=== PATIENT | male | born 1940 | race Caucasian/White ===

== ENCOUNTER 2023-06-17 19:15 | Emergency (ER) | payer OTHER, SELFPAY ==
[2023-06-17 19:20] VITALS: BP 126/66
--- NOTE | 2023-06-17 20:06 | ED.GENMED ---
History of Present Illness
General
Chief Complaint: Fall
Source: patient
Exam Limitations: none
Time Seen by Provider: 06/17/23 20:05
Nursing documentation reviewed up to this point in time: agreed with
Travel History
Have you had any contact with someone who has COVID-19?: No
Do you have any symptoms of coronavirus? Fever > 100 degrees, chills, cough, shortness of breath, sore throat, loss of taste or smell, muscle aches, or headache?: No
History of Present Illness
History of Present Illness:
82-year-old male undergoing physical therapy for chronic low back pain and sciatica. He states his sciatica is improved but he still has low back pain so he continues with physical therapy with a therapist as well as on his own. Was at the gym 2
days ago doing an exercise on a ball rocking back and forth on the ball, he slid off and hit the back of his head on the wall and his right elbow on the floor causing pain in the right shoulder. He has had pain in the right shoulder since. He is
on Eliquis. He denies headache. There was no loss of consciousness. He has been able to do daily activities since.
Past History
Past History
ED Past Medical History: Arrthythmia (Atrial fib) and Other (Urinary retention, prostate enlargement, facial melanoma)
ED Past Surgical History: Tonsilectomy, Urological (TURP) and Other ( groin hernia on the left)
Social History
Tobacco: Non-smoker
Alcohol: None
Drug: None
Personal:
Living: alone
Employment: Employed (Teacher )
Family History
Family History: Other (Noncontributory)
Review of Systems
Review of Systems
Allergies reviewed?: Yes
All Other Systems: ROS reviewed and negative except as documented in HPI and ROS
Constitutional: Denies fatigue
Respiratory: Denies trouble breathing
Cardiac: Denies chest pain or syncope
ABD/GI: Denies abdominal pain, nausea or vomiting
Musculoskeletal: Reports other (Chronic neck and back pain. No pain in right elbow. Pain in right shoulder.)
Skin: Reports no symptoms
Neurological: Denies dizzy, headache, weakness or numbness
Phy Exam
Physical Exam
Physical Exam:
GENERAL: No acute distress. A&Ox3.
CONSTITUTIONAL: Afebrile.
EYES: PERRL, conjunctivae normal
ENMT: moist mucus membranes, Pharynx nl
RESPIRATORY: Regular respirations, nonlabored, lungs clear.
CARDIOVASCULAR: Regular rate and rhythm, no murmurs, no rubs.
GI: Soft, nontender, normal BS
MUSCULOSKELETAL: No spinal bony tenderness. Limited but equal ROM of both upper extremities. Tender to palpate anterior aspect of the right humeral head. The rest of the arm is nontender. There is no tenderness about the elbow. Elbow has full
range of motion. Moves with ease. Well perfused.
SKIN: Warm, dry, pink
PSYCH: Normal mood and affect. Well kept, interactive and appropriate
NEUROLOGIC: Awake, alert and oriented. No focal neurological deficits, ambulates well with steady gait.
Course
Orders/Labs/Results
Orders:
Orders
06/17/23 19:25
CT Head W/o Iv Contrast Urgent
Comment:
Reason For Exam: FALL HIT HEAD ON ELIQUIS
CR Shoulder, Trauma - Right Urgent
Reason For Exam: FALL
Vital Signs
Initial and Last Documented VS:
Initial Vital Signs
Temp Pulse Resp BP Pulse Ox
98.1 F 72 20 126/66 98
06/17/23 19:20 06/17/23 19:20 06/17/23 19:20 06/17/23 19:20 06/17/23 19:20
Last Documented Vital Signs
Temp Pulse Resp BP Pulse Ox
98.1 F 82 20 94/52 98
06/17/23 19:20 06/17/23 21:09 06/17/23 19:20 06/17/23 21:09 06/17/23 19:20
MDM/Problems Addressed
MDM/Problems Addressed:
82-year-old male undergoing physical therapy for chronic low back pain and sciatica. He states his sciatica is improved but he still has low back pain so he continues with physical therapy with a therapist as well as on his own. Was at the gym 2
days ago doing an exercise on a ball rocking back and forth on the ball, he slid off and hit the back of his head on the wall and his right elbow on the floor causing pain in the right shoulder. He has had pain in the right shoulder since. He is
on Eliquis. He denies headache. There was no loss of consciousness. He has been able to do daily activities since.
Patient is pleasant, does not appear to have any problems moving around, gets a full stretcher and ambulates well
06/17/20232005 PM
Head CT: Radiology report read: No acute intracranial abnormality
X-ray right shoulder: Radiology report read: IMPRESSION: Moderate AC joint osteoarthritis.
Severe glenohumeral joint osteoarthritis. Progressed
*Critical Care Note
Total Time (30-74mins, 75-104mins- exclusive of procedures): Not Applicable
ED Attending Note
-
Portions of this chart may have been created with voice recognition software.� Occasional wrong word or��sound alike� substitutions may have occurred due to the inherent limitations of voice recognition software.
Discharge Plan
Departure
Patient Disposition: Home (Routine Discharge)
Date of Disposition: 06/17/23
Time of Disposition: 20:50
Patient with high blood pressure during this ER visit?: No
Condition: Good
Discharge Problem:
fall, Minor head injury, Acute pain of right shoulder, OA (osteoarthritis) of shoulder
Instructions: Osteoarthritis, Head Injury in Adults (DC), Shoulder Pain ED
Prescriptions:
No Action
cyanocobalamin (vitamin B-12) 1,000 MCG tablet
1,000 mcg PO DAILY
ascorbic acid (vitamin C) [Vitamin C] 500 MG tablet
3,000 mg PO DAILY
pyridoxine (vitamin B6) 50 MG tablet
50 mg PO DAILY
zinc 50 MG tablet
50 mg PO DAILY
magnesium 200 MG tablet
200 mg PO DAILY
coenzyme [id number] E 1 CAP capsule
1 cap PO .DAILY-BID
cholecalciferol (vitamin D3) 1,000 UNITS tablet
1,000 units PO .DAILY-BID
lutein 20 MG tablet
20 mg PO DAILY
creatine (bulk) 100 GM powder
2 cap PO DAILY
metoprolol succinate 25 MG tablet extended release 24 hr
25 mg PO PRN PRN (Reason: afib)
Patient Comments:
if takes consistently, gets very tired
Eliquis 2.5 mg Tablet
2.5 mg PO BID
Hold Instructions: Resume on 04/13/22. continue holding if blood in urine
amiodarone 200 mg Tablet
200 mg PO DAILY
Referrals:
Omar Leal MD [Active] - As needed
Activity Restrictions/Additional Instructions:
As we discussed, your head CT shows nothing worrisome.
Your right shoulder x-ray shows advanced arthritis. Tylenol 1000 mg up to 3 times a day as needed for pain.
If your shoulder continues to bother you, make an appointment with the orthopedic doctor for further evaluation.
Interventions
Interventions:
*Risk Screen - Suicide Last Done: 06/17/23 19:20
*General Assessment Last Done: 06/17/23 20:26
*Neglect/Abuse Screening Last Done: 06/17/23 19:20
*Nursing Disposition Last Done: 06/17/23 21:09
ED-Musculoskeletal Assessment Last Done: 06/17/23 19:59
ED- Neurological Assessment Last Done: 06/17/23 19:59
ED-Skin Assessment Last Done: 06/17/23 19:59
Discharge Date and Time
Discharge Date/Time: 06/17/23 21:10
[2023-06-17 21:03] VITALS: BP 94/52
[2023-06-17 21:09] VITALS: BP 94/52
== END 2023-06-17 21:10 | disposition home or self-care (01) ==
LOC: EMR 19:15
PROVIDERS: EMERGENCY PHYSICIAN Emergency Medicine; FAMILY PHYSICIAN Family Medicine
DX: S09.90XA Unspecified injury of head, initial encounter (principal); W19.XXXA Unspecified fall, initial encounter; M25.511 Pain in right shoulder; M19.011 Primary osteoarthritis, right shoulder; G89.29 Other chronic pain; Z79.01 Long term (current) use of anticoagulants
CPT/HCPCS: 99284; 70450; 73030

== ENCOUNTER 2023-08-07 13:04 | Inpatient (IN) | payer OTHER, SELFPAY ==
[2023-08-07 13:21] VITALS: BMI 27.0
[2023-08-07 13:27] VITALS: BP 144/74
[2023-08-07 14:34] LABS: % Immature Granulocytes 0.2 % (0-0.5); % Lymphocytes 23.8 % (20.5-51.1); % Monocytes 10.1 % (1.7-9.3); % Neutrophils 59.9 % (42.2-75.2); Absolute Basophils 0.1 10^3/uL (0-0.2); Absolute Eosinophils 0.2 10^3/uL (0-0.7); Absolute Lymphocytes 1.2 10^3/uL (1.2-3.4); Absolute Monocytes 0.5 10^3/uL (0.1-0.6); Absolute Neutrophils 2.9 10^3/uL (1.4-6.5); Hematocrit 34.8 % (39.0-52.0); Hemoglobin 11.5 g/dL (13.0-18.0); Mean Corpuscular Volume 87.7 fL (80.0-94.0); Mean Platelet Volume 11.3 fL (7.4-10.4); Nucleated Red Blood Cells % 0 % (-); Platelet Count 208 10^3/uL (130-400); Red Blood Cell Count 3.97 10^6/uL (4.70-6.10); Red Cell Dist. Width 14.6 % (11.5-14.5); White Blood Cell Count 4.8 10^3/uL (4.8-10.8)
[2023-08-07 14:57] VITALS: BMI 27.0
[2023-08-07 15:00] LABS: ALT (SGPT) 21 U/L (0-50); AST (SGOT) 30 U/L (17-59); Albumin 3.6 g/dl (3.5-5.0); Alkaline Phosphatase 81 U/L (38-126); Blood Urea Nitrogen 40 mg/dl (9-20); Calcium 9.2 mg/dl (8.4-10.2); Carbon Dioxide 26 mmol/L (22-30); Chloride 105 mmol/L (98-107); Estimated Creatinine Clearance 63 ml/min; Glucose 92 mg/dl (70-99); Potassium 4.6 mmol/L (3.5-5.1); Sodium 135 mmol/L (135-145); Total Bilirubin 0.5 mg/dl (0.2-1.3); Total Protein 6.3 g/dl (6.3-8.2); eGFR > 60.00
--- NOTE | 2023-08-07 15:03 | PTCARENOTE ---
Patient admitted this afternoon for tikosyn loading. Oriented to the room and plan of care. SB on the monitor, admission assessment completed. Patient eating lunch, call arellano in reach, daughter at the bedside.
--- NOTE | 2023-08-07 15:11 | CON.CAR ---
Addendum entered and electronically signed by Shabana Butt MD 08/07/23 20:45:
I saw and examined the patient.
The Television Engineer's note was reviewed and I agree with the note.
Comment: Patient with pAF and baseline bradycardia with amiodarone skin reaction presenting for planned Tikosyn load given symptomatic from pAF. On chronic eliquis.
Vitals reviewed. Labwork reviewed. Creat 1.0 from 1.6. ECG with normal QTc.
Exam with well appearing male in NAD, awake, alert, oriented x 3, No JVD, Lungs CTA, RR, normal S1 and S2. no m/r/g, abd soft, NT, ND, + BS, no LE edema
Reccs:
1. Plan to start at 250mcg every 12hrs of Tikosyn with close monitoring of ECGs and on tele.
2. Cont eliquis.
3. Not on any AVNB in setting of baseline sinus ange.
Shabana Butt MD
Original Note:
Consultation
Consultation Request
Date/Time Consultation Performed: 08/07/23
Performing Provider: Rhina Rendon PA-C for Dr. Butt
Reason for Consultation: afib, tikosyn load
Medical History
-
Chief Complaint: tikosyn load
History of Present Illness:
Patient is an 82-year-old male with past medical history of paroxysmal atrial fibrillation, symptomatic. He previously has been on amiodarone, however developed significant eczema type of rash and after discussion, amiodarone was stopped 06/26/2023.
Tikosyn was discussed, and he is now admitted for Tikosyn loading. He is in sinus bradycardia at present. He remains on Eliquis, with no missed doses as an outpatient. He has taken topical antifungal medicines, however nothing orally.
PMH:
Paroxysmal atrial fibrillation, symptomatic
Chronic anticoagulation with Eliquis
Sinus bradycardia
Rash with amiodarone
Spinal stenosis
Hyperlipidemia
History of TURP
Past Medical History
Past Medical History: Other (in HPI)
Social History
Tobacco: Non-Smoker
Employment: Employed
Allergies / Home Medications
Allergy/AdvReac Type Severity Reaction Status Date / Time
finasteride Allergy debilitating Verified 06/17/23 19:24
muscle pain
Penicillins Allergy 'little Verified 06/17/23 19:24
red
spots',
hives-
tolerated
ceftriaxone
Sulfa (Sulfonamide Allergy 'little Verified 06/17/23 19:24
Antibiotics) red spots'
�Medication �Instructions �Recorded �Confirmed �Type
ascorbic acid (vitamin C) 500 mg 3,000 mg PO DAILY Supplement 07/06/20 08/07/23 History
tablet (Vitamin C)
cholecalciferol (vitamin D3) 25 1,000 units PO DAILY Supplement 07/06/20 08/07/23 History
mcg (1,000 unit) tablet
coenzyme [id number] E 100 mg-100 1 cap PO DAILY Supplement 07/06/20 08/07/23 History
unit capsule
cyanocobalamin (vitamin B-12) 1,000 mcg PO DAILY Supplement 07/06/20 08/07/23 History
1,000 mcg tablet
lutein 20 mg tablet 20 mg PO DAILY Supplement 07/06/20 08/07/23 History
pyridoxine (vitamin B6) 50 mg 50 mg PO DAILY Supplement 07/06/20 08/07/23 History
tablet
zinc 50 mg tablet 50 mg PO DAILY Supplement 07/06/20 08/07/23 History
apixaban 5 mg tablet (Eliquis) 5 mg PO BID 08/07/23 08/07/23 History
glutamine 500 mg capsule 500 mg PO DAILY 08/07/23 08/07/23 History
(L-Glutamine)
magnesium 300 tab PO BID 08/07/23 08/07/23 History
Review of Systems
-
History Source: Patient and Family
All other systems: Negative unless noted
Physical Exam
Lab Results
08/07/23 14:19
08/07/23 14:19
Physical Exam
General: No Apparent Distress and Comfortable
HEENT: Normocephalic, Anicteric and Moist Mucous Membranes
Respiratory: Clear and Non Labored Respirations
Cardiac: S1/S2, Regular Rhythm, Murmur and Other (bradycardic)
GI: Soft, Non Tender, Non Distended and Normal Bowel Sounds
Musculoskeletal: No Clubbing, No Cyanosis and No Edema
Skin: Warm and Dry
Neuro: AO x 3
Impression / Plan
-
Primary Bowstring Maker: Dr. Ash
Primary EP: Dr. Olmstead
Assessment:
Presentation for tikosyn load
Paroxysmal atrial fibrillation, symptomatic
Chronic anticoagulation with Eliquis
Sinus bradycardia
Rash with amiodarone
Spinal stenosis
Hyperlipidemia
History of TURP
ECHO 07/07/20: EF 55 to 60%, mild concentric LVH, and mild MAC, mild MR
Plan:
-Patient presents for Tikosyn loading in the setting of symptomatic paroxysmal atrial fibrillation. Last dose of amiodarone 06/26/2023. He has been compliant with Eliquis without missed doses per patient and daughter.
-Will plan to start tikosyn 250 mcg every 12 hours
-Follow QTc
-in sinus ange. will need to follow HRs with addition of tikosyn. not on av smith blocking meds as OP
-check echo, last from 2020 with results as above
-continue eliquis
-would consider for ablation
-d/w patient and daughter at bedside
-d/w nursing
Data Reviewed
-
EKG: Tracing Personally Visualized and interpreted
Medical Tests (Nuc Med, Echo etc): Report Reviewed by me
Labs: Labs Reviewed by me
Old Records: Reviewed
[2023-08-07 15:20] VITALS: BP 137/74
--- NOTE | 2023-08-07 15:38 | CM ---
Reviewed chart. Met with Mr. Vaughan to review discharge plans. He states prior to admission he resides alone in a two story home with three steps to enter. He states he has a full flight of steps to get to bedroom. He states he has a full
bathroom on each floor. He states prior to admission he ambulates with a single point cane. He has a single point cane at home. He states he has a prescription plan and uses [facility]. Will check out his co-pay for Dofetilide. He will need a
three day script of Dofetilide from [facility] to go home with him. Medical work-up in progress. The discharge plan is to return home when medically stable.
[2023-08-07 15:43] LABS: TSH 2.45 uIU/ml (0.47-4.68)
[2023-08-07] MEDS: TIKOSYN 250 MCG PO (16:33)
[2023-08-07 18:57] VITALS: BP 140/79
[2023-08-07] MEDS: ELIQUIS 5 MG PO (19:30)
[2023-08-07] MEDS: MAG-TAB SR 84 MG PO (19:31)
--- NOTE | 2023-08-07 20:51 | PTCARENOTE ---
Pt received at start of shift, HR SB. Reinforced purpose of Sotalol w/ pt, pt states understanding. Pt very curious about how to read EKG rhythm strips and 'the fabled QT'. Pt denies any CP, SOB, or lightheadedness/dizziness. Informed to notify RN
if any changes, call arellano within reach.
[2023-08-07 22:20] VITALS: BP 144/71
[2023-08-08 04:08] VITALS: BP 137/71
[2023-08-08] MEDS: TIKOSYN 250 MCG PO ×2 (04:10→16:09)
[2023-08-08 04:36] LABS: Hematocrit 37.3 % (39.0-52.0); Hemoglobin 12.5 g/dL (13.0-18.0); Mean Corp Hgb Conc. 33.5 g/dL (33.0-37.0); Mean Corpuscular Hgb 28.9 pg (27.0-31.0); Mean Corpuscular Volume 86.3 fL (80.0-94.0); Mean Platelet Volume 10.8 fL (7.4-10.4); Platelet Count 210 10^3/uL (130-400); Red Blood Cell Count 4.32 10^6/uL (4.70-6.10); Red Cell Dist. Width 14.5 % (11.5-14.5)
[2023-08-08 05:07] LABS: Blood Urea Nitrogen 35 mg/dl (9-20); Calcium 9.7 mg/dl (8.4-10.2); Carbon Dioxide 27 mmol/L (22-30); Chloride 104 mmol/L (98-107); Estimated Creatinine Clearance 58 ml/min; Glucose 92 mg/dl (70-99); Potassium 4.7 mmol/L (3.5-5.1); Sodium 135 mmol/L (135-145); eGFR > 60.00
[2023-08-08 07:38] VITALS: BP 133/73
--- NOTE | 2023-08-08 08:27 | W.PN.CARDCBS ---
Addendum entered and electronically signed by Amadou Ash MD 08/08/23 08:43:
I saw and examined the patient.
The Coat Examiner's note was reviewed and I agree with the note.
Comment:
GEN: No distress, awake, Ox3
HEENT: supple, anicteric, mmm
LUNGS: CTA, no wheezes/rales
CV: Reg, S1/S2, 1/6 syst LSB, no murmur
ABD: soft, BS+, NT/ND
EXT: No edema
NEURO: Gross non-focal
SKIN: No rash
Plan:
Doing well on Tikosyn 250mcg q12.
QTc 440msec.
Cont Eliquis
Echo today.
Original Note:
Today's Communication / Plan
-
continue tikosyn 250mcg Q12H, eliquis
follow QTc and HRs
check echo
consider eval for ablation
Impression / Plan
-
Primary Dot Net Architect: Dr. Ash
Primary EP: Dr. Olmstead
Assessment:
Presentation for tikosyn load
Paroxysmal atrial fibrillation, symptomatic
Chronic anticoagulation with Eliquis
Sinus bradycardia
Rash with amiodarone
Spinal stenosis
Hyperlipidemia
History of TURP
ECHO 07/07/20: EF 55 to 60%, mild concentric LVH, and mild MAC, mild MR
Plan:
-Patient presents for Tikosyn loading in the setting of symptomatic paroxysmal atrial fibrillation. Last dose of amiodarone 06/26/2023. He has been compliant with Eliquis without missed doses per patient and daughter.
-in SB on review of tele overnight, occasionally HRs into 30s however not sustained and during sleep. patient asymptomatic. would attempt to continue tikosyn 250mcg Q12H.
-QTc remains stable thus far
-not on av smith blocking meds as OP
-check echo, last from 2020 with results as above
-continue eliquis
-would consider for ablation
Progress Note - Dot Net Architect
Subjective
Date of Service: August 08, 2023
Without complaints overnight
Objective
Labs:
08/08/23 04:20
08/08/23 04:20
Labs
Hgb 12.5 g/dL (13.0-18.0) L 08/08/23 04:20
Hct 37.3 % (39.0-52.0) L 08/08/23 04:20
Plt Count 210 10^3/uL (130-400) 08/08/23 04:20
Sodium 135 mmol/L (135-145) 08/08/23 04:20
Potassium 4.7 mmol/L (3.5-5.1) 08/08/23 04:20
BUN 35 mg/dl (9-20) H 08/08/23 04:20
Creatinine 1.1 mg/dL (0.7-1.3) 08/08/23 04:20
Glucose 92 mg/dl (70-99) 08/08/23 04:20
Vital Signs and I&O:
Vital Signs
Temp Pulse Resp BP Pulse Ox
97.5 F 69 16 133/73 96
08/08/23 07:38 08/08/23 07:45 08/08/23 07:38 08/08/23 07:38 08/08/23 07:38
Vital Signs
Temp Pulse Resp BP Pulse Ox
97.5 F 69 16 133/73 96
08/08/23 07:38 08/08/23 07:45 08/08/23 07:38 08/08/23 07:38 08/08/23 07:38
Intake & Output
08/06/23 08/07/23 08/08/23 08/09/23
07:59 07:59 07:59 07:59
Intake Total 480 / 480
Output Total 1700 / 1700
Balance -1220 / -1220
Physical Exam
Physical Exam
GEN: No distress, awake, alert, oriented x3
HEENT: supple, anicteric, mmm, eomi
LUNGS: CTA B/L, no wheezes/rales
CV: Reg and ange, S1/S2, 1/6 syst LSB
ABD: soft, BS+, NT/ND
EXT: No cyanosis, clubbing, edema
NEURO: Gross non-focal
SKIN: Warm, pink, dry.
[2023-08-08] MEDS: ELIQUIS 5 MG PO ×2 (09:17→19:27)
[2023-08-08] MEDS: MAG-TAB SR 84 MG PO ×2 (09:18→19:27)
[2023-08-08] MEDS: VITAMIN C 3000 MG PO (09:18)
[2023-08-08] MEDS: VITAMIN B-12 1000 MCG PO (09:19)
[2023-08-08] MEDS: FLUSH (NSS) 1 FLUSH IV (09:19)
--- NOTE | 2023-08-08 10:08 | PTCARENOTE ---
Received patient this morning resting in bed. Remains in SB, offers no complaints. To receive third dose of tikosyn this afternoon.
[2023-08-08 11:49] VITALS: BP 144/67
--- NOTE | 2023-08-08 14:22 | CM ---
Reviewed chart. Telephone call to [facility],([phone]) to check on co-pap for Dofetilide 250mcg po bid. His co-pay would be $50.00 a month. Reviewed co-pay with Mr. Vaughan. Telephone call to [facility],([phone]) to see if they
have Dofetilide 250 mcg in stock. They have it in stock. Reviewed [facility] with him. Will need a three day script of Dofetilide to go to [facility] to give to him on discharge. Medical work-up in progress. The discharge plan is to return home
when medically stable.
[2023-08-08 16:08] VITALS: BP 132/63
[2023-08-08 18:41] VITALS: BP 151/78
--- NOTE | 2023-08-08 21:05 | PTCARENOTE ---
Pt received start of shift, HR SB. Updated pt on plan of care, pt states no questions at this time. Pt denies any CP, SOB, or lightheadedness/dizziness. Informed to notify RN if any changes, call arellano within reach.
[2023-08-08 22:44] VITALS: BP 135/68
[2023-08-09] MEDS: TIKOSYN 250 MCG PO ×2 (04:18→15:57)
[2023-08-09 04:22] VITALS: BP 132/67
[2023-08-09 08:00] VITALS: BP 121/64
[2023-08-09] MEDS: VITAMIN C 3000 MG PO (08:43)
[2023-08-09] MEDS: MAG-TAB SR 84 MG PO ×2 (08:44→18:26)
[2023-08-09] MEDS: ELIQUIS 5 MG PO ×2 (08:44→18:26)
[2023-08-09] MEDS: VITAMIN D3 (cholecalciferol) 25 MCG PO (08:44)
[2023-08-09] MEDS: VITAMIN B-12 1000 MCG PO (08:45)
--- NOTE | 2023-08-09 10:11 | PTCARENOTE ---
Assumed care of pt from night RN. Pt received asleep but wakens easily to verbal. VSS, CM shows SB 50's, POX 95% on RA. Awaiting dose # 5 of Tikosyn at 1600 today. He denies any pain or discomfort.
--- NOTE | 2023-08-09 10:47 | W.CARD.TIKOS ---
Initiate Tikosyn
-
Verified below prior to initiation of tikosyn 08/06 but note not previously entered.
I verify that the patient has not taken any verapamil (Isoptin/Calan), ketoconazole (Nizoral), cimetidine (Tagamet), trimethoprim (Trimpex), trimethoprim/sulfamethoxazole (Bactrim), megesterol (Megace), prochlorperazine (Compazine),
hydrochlorothiazide (HCTZ), dolutegravir (Tivicay) or any Class I or Class III anti-arrhythmic within the last three days
AND
I verify that the patient has not taken amiodarone within the last THREE months, or that the patient's amiodarone plasma concentration is <0.3 mcg/mL.
Creatinine 1.1 mg/dL (0.7-1.3) 08/08/23 04:20
Estimated Creat Clear 58 ml/min 08/08/23 04:20
Does patient have a Ventricular Conduction Abnormality: No
I have assessed the baseline QTc interval (using QT for heart rate less than 60 bpm) and deemed the patient is appropriate for Dofetilide therapy. I understand that Tikosyn is contraindicated if the QTc is >440msec (500msec in patients with
ventricular conduction abnormalities).
Baseline QTc (in msec): 420
QTc interval is greater than 440msec without conduction abnormality OR greater than 500msec with a conduction abnormality, but acceptable to proceed per Cardiology attending.
Ordering Physician: Shane Raygoza
--- NOTE | 2023-08-09 10:50 | W.PN.CARDCBS ---
Addendum entered and electronically signed by Rhina Rendon PA-C 08/09/23 14:28:
[id number]
Addendum entered and electronically signed by Leena Lockhart DO 08/09/23 11:40:
I saw and examined the patient.
The Twisting Department End Finder's note was reviewed and I agree with the note.
Comment: Patient seen and examined this morning. Overall feels well and anxious for discharge.
GEN: No distress, awake, alert, oriented x3.
HEENT: mmm
LUNGS: CTA B/L, no wheezes/rales
CV: Reg and ange, S1/S2, no murmur
ABD: soft, BS+, NT/ND
EXT: No cyanosis, clubbing, edema
NEURO: Gross non-focal
Plan:
82-year-old gentleman presented for elective Tikosyn load with history of paroxysmal symptomatic atrial fibrillation on chronic Eliquis anticoagulation. Patient presented and remains in sinus rhythm
-Tolerated Tikosyn load with stable QTc.
-Twelve-lead EKG today sinus bradycardia with QTc 453 ms.
-Telemetry without significant bradycardia arrhythmia or pauses. Remains in sinus bradycardia without symptoms. He did have 1 for and 1 5 beat run of NSVT.
-No AV smith blocking agents given sinus bradycardia
-Lab work today pending. Yesterday potassium 4.7, magnesium 2, BUN/creatinine 35/1.1.
-TSH 08/07/2023 normal, 2.45
-Mild anemia stable, hemoglobin range 11.5-12.5 g/dL
-Continue uninterrupted Eliquis
-Plan for discharge home after fifth dose of Tikosyn later today.
-Outpatient cardiac follow-up to be arranged
Original Note:
Today's Communication / Plan
-
continue tikosyn 250mcg Q12H
follow QTc
check BMP/mag
continue eliquis
plan for DC later today
Impression / Plan
-
Primary Cleaning Custodian: Dr. Ash
Primary EP: Dr. Olmstead
Assessment:
Presentation for tikosyn load
Paroxysmal atrial fibrillation, symptomatic
Chronic anticoagulation with Eliquis
Sinus bradycardia
Rash with amiodarone
Spinal stenosis
Hyperlipidemia
History of TURP
ECHO 07/07/20: EF 55 to 60%, mild concentric LVH, and mild MAC, mild MR
ECHO 08/08/23: EF 55 to 60%, no regional wall motion abnormalities noted, mild MR, no significant change compared to prior
Plan:
-Patient presents for Tikosyn loading in the setting of symptomatic paroxysmal atrial fibrillation. Last dose of amiodarone 06/26/2023. He has been compliant with Eliquis without missed doses per patient and daughter.
-remains in SB on review of tele overnight. one 4 and one 5-beat run of NSVT. check BMP/mag
-continue tikosyn 250mcg Q12H. QTc remains stable thus far
-not on av smith blocking meds as OP
-echo stable compared to prior from 2020, EF preserved
-continue eliquis
-would consider for ablation
-plan for DC to home after 5th dose today
-OP cardiac follow up arranged
Progress Note - Cleaning Custodian
Subjective
Date of Service: August 09, 2023
no issues overnight per patient
Objective
Labs:
08/08/23 04:20
08/08/23 04:20
Labs
Hgb 12.5 g/dL (13.0-18.0) L 08/08/23 04:20
Hct 37.3 % (39.0-52.0) L 08/08/23 04:20
Plt Count 210 10^3/uL (130-400) 08/08/23 04:20
Sodium 135 mmol/L (135-145) 04/24/24 04:20
Potassium 4.7 mmol/L (3.5-5.1) 08/08/23 04:20
BUN 35 mg/dl (9-20) H 08/08/23 04:20
Creatinine 1.1 mg/dL (0.7-1.3) 08/08/23 04:20
Glucose 92 mg/dl (70-99) 08/08/23 04:20
Vital Signs and I&O:
Vital Signs
Temp Pulse Resp BP Pulse Ox
97.7 F 50 20 121/64 95
08/09/23 07:58 08/09/23 08:00 08/09/23 07:58 08/09/23 08:00 08/09/23 10:02
Vital Signs
Temp Pulse Resp BP Pulse Ox
97.7 F 50 20 121/64 95
08/09/23 07:58 08/09/23 08:00 08/09/23 07:58 08/09/23 08:00 08/09/23 10:02
Intake & Output
08/07/23 08/08/23 08/09/23 08/10/23
07:59 07:59 07:59 07:59
Intake Total 480 / 480 480 / 480
Output Total 1700 / 1700 750 / 750
Balance -1220 / -1220 -270 / -270
Physical Exam
Physical Exam
GEN: No distress, awake, alert, oriented x3
HEENT: supple, anicteric, mmm, eomi
LUNGS: CTA B/L, no wheezes/rales
CV: Reg and ange, S1/S2, no murmur
ABD: soft, BS+, NT/ND
EXT: No cyanosis, clubbing, edema
NEURO: Gross non-focal
SKIN: Warm, pink, dry.
--- NOTE | 2023-08-09 11:04 | W.DS.TRANS ---
DC Summary - [employer]
-
Discharge Instructions:
Sleep Apnea Risk Intermediate
Discharge Diagnosis/Procedures PAF, tikosyn load
Diet Low Cholesterol
Activity As tolerated
Driving Restrictions As prior to admission
Bathing Restrictions None
Instructions:
Stand-Alone Forms:
Changes to Home Medications: Yes
Discharge Medications:
DC Medications w/original date entered in [facility]
ascorbic acid (vitamin C) 500 mg tablet (Vitamin C) 3,000 mg PO DAILY Supplement 07/06/20
cholecalciferol (vitamin D3) 25 mcg (1,000 unit) tablet 1,000 units PO DAILY Supplement 07/06/20
coenzyme B16-nkbqbdn E 100 mg-100 unit capsule 1 cap PO DAILY Supplement 07/06/20
cyanocobalamin (vitamin B-12) 1,000 mcg tablet 1,000 mcg PO DAILY Supplement 07/06/20
lutein 20 mg tablet 20 mg PO DAILY Supplement 07/06/20
pyridoxine (vitamin B6) 50 mg tablet 50 mg PO DAILY Supplement 07/06/20
zinc 50 mg tablet 50 mg PO DAILY Supplement 07/06/20
apixaban 5 mg tablet (Eliquis) 5 mg PO BID Blood Clot Prevention/Tx 08/07/23
glutamine 500 mg capsule (L-Glutamine) 500 mg PO DAILY Supplement 08/07/23
magnesium 300 tab PO BID Supplement 08/07/23
dofetilide 250 mcg capsule 250 mcg PO Q12H #60 caps 08/09/23
Home Medication Changes
tikosyn is new
Pending Results: No
[2023-08-09 11:18] VITALS: BP 135/64
--- NOTE | 2023-08-09 12:36 | CM ---
Reviewed chart. Met with Mr. Vaughan to review discharge plans. Reviewed three day supply of Dofetilide to go home with him. Dofetilide script sent to . Pharmacy. Reviewed co-pay of $50.00 a month with Mr. Vaughan. He states he will fill the
first script with [facility]. Telephone call to [facility], Dofetilide script has been filled. The co-pay $50.00 a month. Prior to admission he resides alone in a two story home with three steps to enter. He has a full flight of steps to
get to bedroom. He has a bathroom on each level. Prior to admission he ambulates with a single point cane. He has a single point cane at home. He has a prescription plan and uses [facility].
[2023-08-09 13:30] LABS: Blood Urea Nitrogen 33 mg/dl (9-20); Calcium 9.6 mg/dl (8.4-10.2); Carbon Dioxide 26 mmol/L (22-30); Chloride 104 mmol/L (98-107); Estimated Creatinine Clearance 58 ml/min; Glucose 99 mg/dl (70-99); Magnesium 2.1 mg/dl (1.6-2.3); Potassium 4.8 mmol/L (3.5-5.1); Sodium 134 mmol/L (135-145); eGFR > 60.00
[2023-08-09 14:59] VITALS: BP 129/55
[2023-08-09] MEDS: PREVNAR 20 0.5 ML IM (16:20)
--- NOTE | 2023-08-09 16:29 | PTCARENOTE ---
Pneumococcal Vax given as per JUN.
--- NOTE | 2023-08-09 20:46 | PTCARENOTE ---
Discharge instructions reviewed with daughter and patient. All questions answered.
IV removed prior to assuming care of this patient. No other IVs.
Belongings sent with patient
== END 2023-08-09 20:41 | disposition home or self-care (01) | DRG 310 ==
LOC: IVU 13:04
PROVIDERS: Internal Medicine Cardiovascular Disease; ADMITTING PHYSICIAN Internal Medicine Cardiovascular Disease; OTHER PHYSICIAN Physician Assistant
PROC: 3E033RZ Introduction of Antiarrhythmic into Peripheral Vein, Percutaneous Approach (ICD-10-PCS; 2023-08-07)
DX: I48.0 Paroxysmal atrial fibrillation (principal); M48.00 Spinal stenosis, site unspecified; E78.5 Hyperlipidemia, unspecified; Z79.01 Long term (current) use of anticoagulants
CPT/HCPCS: 80048; 80053; 83735; 84443; 85025; 85027; 90677; 93005; 93306; G0009

== ENCOUNTER → 2024-05-22 13:24 | Outpatient (REF) | payer OTHER, SELFPAY | LOC: RAD 13:24 | PROVIDERS: ATTENDING PHYSICIAN Family Medicine | DX: I65.22 Occlusion and stenosis of left carotid artery (principal) | CPT/HCPCS: 93880 ==